=== PATIENT | female | born 1985 | race Caucasian/White ===

== ENCOUNTER 2018-04-17 02:27 | Emergency (ER) | payer SELFPAY ==
[~2018-04-17] VITALS: Ht 162.6 cm; Wt 59.1 kg
[2018-04-17 02:33] VITALS: BP 108/76; PULSE 110; RESP 18; Ht 162.6 cm; Wt 59.1 kg
== END 2018-04-17 04:42 | disposition left against medical advice (07) ==
LOC: FTE 02:27
DX: Z53.21 Procedure and treatment not carried out due to patient leaving prior to being seen by health care provider (principal)